=== PATIENT | female | born 1945 | race Caucasian/White ===

== ENCOUNTER 2016-11-03 09:21 | Outpatient (CLI) | payer MEDICARE ==
[2016-11-03 10:38] LABS: ALT (SGPT) 25 U/L (0-55); AST (SGOT) 21 U/L (5-34); Alkaline Phosphatase 93 U/L (40-150); Anion Gap 16 mmol/L (10-20); BUN (Urea Nitrogen) 22 mg/dL (9.8-20.1); Bilirubin, Total 0.4 mg/dL (0.2-1.2); Calc. Creatinine Clearance 0 mL/min (70-130); Calcium 9.8 mg/dL (7.8-10.44); Carbon Dioxide 24 mmol/L (23-31); Chloride 108 mmol/L (98-107); Estimated GFR-MDRD 76; Globulin 3.2 g/dL (2.4-3.5); LDL Cholesterol, Calculated 69 mg/dL; Protein, Total 7.5 g/dL (5.8-8.1)
[2016-11-03 10:40] LABS: #Basophils 0.1 thou/uL (0.0-0.2); #Eosinphils 0.2 thou/uL (0.0-0.7); #Monocytes 0.8 thou/uL (0.11-0.59); #Neutrophils 6.4 thou/uL (1.40-6.50); %Eosinophils 2.4 % (0.0-10.0); %Monocytes 8.7 % (0.0-10.0); Hematocrit 45.9 % (36.0-47.0); Mean Platelet Volume 11.4 fL (7.4-10.4); Red Blood Cell (RBC) Count 4.66 mill/uL (4.20-5.40); White Blood Cell (WBC) Count 9.5 thou/uL (4.8-10.8)
== END 2016-11-03 09:22 | disposition home or self-care (01) ==
LOC: BURLAB 09:21
PROVIDERS: ATTEND Family Medicine
DX: E78.5 Hyperlipidemia, unspecified (principal); E03.9 Hypothyroidism, unspecified; I10 Essential (primary) hypertension
CPT/HCPCS: 36415; 80053; 80061; 84443; 85025